=== PATIENT | male | born 2005 | race Caucasian/White ===

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

== ENCOUNTER 2023-01-12 10:44 | Emergency (ER) | payer OTHER, SELFPAY ==
[2023-01-12 10:47] VITALS: BP 133/71; PULSE 91; RESP 18; TEMP 36.2; O2SAT 97
--- NOTE | 2023-01-12 12:11 | ED.GENADUL_ITS ---
Discharge Plan Disposition Patient Disposition: Home Discharge Details Clinical Impression: Laceration of thumb Primary Care Provider: Cally Griggs ED Provider: Constance Kimball Home Meds and New Rx's Prescriptions: No Action No Known Home Meds Discharge Instructions Instructions: Laceration (ED) Additional Instructions: Keep wound clean and dry Keep a bulky dressing on it so you are not flexing and extending it, do not submerge in water for the next 10 days In 12 days you can have this removed, if you flex and extend it overlying laceration the sutures may pull out and the wound to become infected, I recommend keeping it immobilized in a bulky dressing try to let it air dry at night and for 5 days and return earlier should you have new or worsening complaints Stand Alone Forms: Work Release Discharge Data Discharge Date/Time-TO BE ENTERED AT DEPARTURE: 01/12/23 12:39 Medical Decision Making 17-year-old male with presents with report of laceration to hand just prior to arrival, tetanus up-to-date, neurovascularly intact on assessment, approximately 1 inch laceration noted, that flexion extension intact Suture without incident, 4 vertical mattress sutures placed, tolerated without incident Patient bulky dressing, return precautions reviewed and patient expressed understanding Suture removal in 10 days Medical Records Medical records reviewed: Yes I reviewed the patient's medical records. Lab Data Lab results reviewed: Yes I reviewed the patient's lab results. HPI General Date/Time Provider Initiated Documentation: 01/12/23 11:28 . HPI Narrative: This 17-year-old male presents with laceration to right thumb while at work. Tetanus unsure. Happened on sheet-metal. Denies strength or sensation change. Denies history of coagulopathy. Related Data Home Medications Medication Instructions Recorded Confirmed Unknown [No Known Home Meds] 09/21/20 01/12/23 Allergies Allergy/AdvReac Type Severity Reaction Status Date / Time amoxicillin AdvReac Severe Anaphylaxis Unverified 01/12/23 11:26 Penicillins AdvReac Severe Anaphylaxis Unverified 01/12/23 11:26 General Stated Complaint: Laceration LORELEI: 3 PFSH All Active Problems (Updated 01/12/23 @ 12:14 by GEORGETTE Corea) Laceration of thumb (Acute) Tachypnea (Acute) Anxiety (Chronic) Social History Smoking/Tobacco Use Status: Current every day Tobacco Type: e-cigarettes Smoking risk assessment performed?: Yes Alcohol Intake: never Drug use: Occasionally Substance use type: marijuana Do you feel safe at home: Yes Do you feel safe in your relationship?: Yes Course Vital Signs Vital signs: Vital Signs Temperature 36.2 C L 01/12/23 10:47 Pulse 91 H 01/12/23 10:47 Respiratory Rate 18 01/12/23 10:47 Blood Pressure 133/71 01/12/23 10:47 Pulse Oximetry 97 01/12/23 10:47 Temperature 36.2 C L 01/12/23 10:47 Temperature Source Skin 01/12/23 10:47 Pulse 91 H 01/12/23 10:47 Respiratory Rate 18 01/12/23 10:47 Respiratory Effort Normal, Non-Labored 01/12/23 10:50 Blood Pressure 133/71 01/12/23 10:47 Blood Pressure Position Sitting 01/12/23 10:47 Pulse Oximetry 97 01/12/23 10:47 Oxygen Delivery Method Room Air 01/12/23 10:47 Oxygen Flow Rate 0 01/12/23 10:47 Pain Level 0 01/12/23 11:22 Procedures Laceration Laceration 1: Site: hand Side (If applicable): right Size (cm): 2.5 Description: linear Depth: simple, single layer Local Anesthetic: Lidocaine 1% Amount of anesthesia used (mL): 3 Pre-repair: wound explored and irrigated extensively Skin layer closed with: other (prolene) Size (cm): 4-0 Number of sutures: 4 Technique: other (vertical mattress )
[2023-01-12 12:20] VITALS: BP 140/73; PULSE 83; RESP 16; O2SAT 98
== END 2023-01-12 12:39 | disposition home or self-care (01) ==
PROVIDERS: Emergency Provider Physician Assistant; PCP Physician Assistant Medical
DX: S61.411A Laceration without foreign body of right hand, initial encounter (principal); W45.8XXA Other foreign body or object entering through skin, initial encounter; Y99.0 Civilian activity done for income or pay; Z88.1 Allergy status to other antibiotic agents; Z88.0 Allergy status to penicillin; F17.200 Nicotine dependence, unspecified, uncomplicated
CPT/HCPCS: 12001; 90471; 99284; 99283

== ENCOUNTER 2023-01-23 12:19 | Emergency (ER) | payer MEDICAID, SELFPAY ==
[2023-01-23 12:23] VITALS: BP 115/72; PULSE 86; RESP 18; TEMP 37.1; O2SAT 99
--- NOTE | 2023-01-23 12:29 | ED.GENADUL_ITS ---
Discharge Plan Disposition Patient Disposition: Home Discharge Details Clinical Impression: Encounter for removal of sutures Primary Care Provider: Cally Griggs ED Provider: Sukhi Rizvi Home Meds and New Rx's Prescriptions: No Action No Known Home Meds Discharge Instructions Additional Instructions: Watch for any signs of infection and return immediately if that occurs. Otherwise you may perform work duties as tolerated and follow-up with your primary care provider for reassessment as needed Referrals: Primary Care Provider [Outside] (As needed for reassessment) Discharge Data Discharge Date/Time-TO BE ENTERED AT DEPARTURE: 01/23/23 12:31 Medical Decision Making Previous note reviewed. Patient here for suture removal. Sutures in place for 10 days patient denying any complications beyond some ongoing paresthesias which he states is nonbothersome to him. Physical exam unremarkable for any signs of dehiscence or infection. 4 vertical mattress sutures were removed without any complications. After discussion of diagnosis and plan of care patient has no further needs, questions, or concerns and states clear understanding to return to the emergency department for any worsening symptoms. This documentation was generated using [employer] system, please disregard any oddities of phrase or misspellings. HPI General Mode of arrival: ambulatory . Date/Time Provider Initiated Documentation: 01/23/23 12:21 . Limitations to Documentation: no limitations . Information obtained by: patient, RN notes reviewed and old records reviewed . History of Present Illness 17 year old M presents to the emergency department with the chief complaint of Suture removal, Patient notes no other symptoms.. Related Data Home Medications Medication Instructions Recorded Confirmed Unknown [No Known Home Meds] 09/21/20 01/12/23 Allergies Allergy/AdvReac Type Severity Reaction Status Date / Time amoxicillin AdvReac Severe Anaphylaxis Unverified 01/12/23 11:26 Penicillins AdvReac Severe Anaphylaxis Unverified 01/12/23 11:26 General Stated Complaint: SutureRem LORELEI: 4 Review of Systems Constitutional Constitutional: Denies chills and Denies fever(s) Musculoskeletal Musculoskeletal: Denies arthralgias Integumentary/Breasts Skin/Breast: Denies rash and Denies skin swelling PFSH All Active Problems (Updated 01/23/23 @ 12:31 by Sukhi Rizvi NP) Encounter for removal of sutures (Acute) Laceration of thumb (Acute) Tachypnea (Acute) Anxiety (Chronic) Social History Smoking/Tobacco Use Status: Current every day Tobacco Type: e-cigarettes Smoking risk assessment performed?: Yes Alcohol Intake: never Drug use: Occasionally Substance use type: marijuana Do you feel safe at home: Yes Do you feel safe in your relationship?: Yes Exam Const General: cooperative, comfortable and no acute distress Orientation: alert, awake and oriented x3 HENMT Mouth: moist mucous membranes Resp Effort & Inspection: normal respiratory effort, able to speak in complete sentences and no respiratory distress Skin Rashes: no rashes Trauma: laceration (healing well laceration without erythema, purulence, or dehiscence.) Neuro General: patient alert and patient awake Course Vital Signs Vital signs: Vital Signs Temperature 37.1 C 01/23/23 12:23 Pulse 86 01/23/23 12:23 Respiratory Rate 18 01/23/23 12:23 Blood Pressure 115/72 01/23/23 12:23 Pulse Oximetry 99 01/23/23 12:23 Temperature 37.1 C 01/23/23 12:23 Temperature Source Skin 01/23/23 12:23 Pulse 86 01/23/23 12:23 Respiratory Rate 18 01/23/23 12:23 Respiratory Effort Normal 01/23/23 12:25 Blood Pressure 115/72 01/23/23 12:23 Blood Pressure Position Supine 01/23/23 12:23 Pulse Oximetry 99 01/23/23 12:23 Oxygen Delivery Method Room Air 01/23/23 12:23 Oxygen Flow Rate 0 01/23/23 12:23 Pain Level 0 01/23/23 12:23
== END 2023-01-23 12:31 | disposition home or self-care (01) ==
LOC: ER 12:35
PROVIDERS: Emergency Provider Nurse Practitioner Family; PCP Physician Assistant Medical
DX: Z48.02 Encounter for removal of sutures (principal)